=== PATIENT | male | born 1975 | race Two or more races ===

== ENCOUNTER 2018-12-07 06:04 | Emergency (ER) | payer MEDICAID ==
[~2018-12-07] VITALS: Ht 175.3 cm; Wt 83.9 kg
[2018-12-07] MEDS ORDERED: ALBUTEROL SULF 2.5 MG/0.5ML(0.5%) NEB SOLN HHN STA (06:06)
[2018-12-07] MEDS ORDERED: IPRATROPIUM BROM 0.5 MG/2.5ML INH SOL NEB ONE (06:15)
[2018-12-07] MEDS ORDERED: SODIUM CHLORIDE 0.9% 1,000 ML IV ONE (07:21)
[2018-12-07] MEDS ORDERED: methylPREDNISolone SOD SUCC 125 MG/2 ML VL IV ONE (07:30)
[2018-12-07 07:32] LABS: Basophils # (auto) 0.1 uL; Basophils % (auto) 0.5 % (0.0-2.0); Eosinophils # (auto) 0.6 uL; Eosinophils % (auto) 5.4 % (0.0-7.0); Hematocrit 46.7 % (41.0-53.0); Hemoglobin 15.6 g/dL (13.5-17.5); Lymphocytes # (auto) 1.2 uL; Lymphocytes % (auto) 11.1 % (10.0-50.0); Mean Corpuscular Hemoglobin 28.5 pg (28.0-32.0); Mean Corpuscular Hgb Conc. 33.4 g/dL (32.0-36.0); Mean Corpuscular Volume 85.1 fL (80.0-100.0); Monocytes # (auto) 0.7 uL; Monocytes % (auto) 6.1 % (0.0-12.0); Neutrophils # (auto) 8.5 uL; Neutrophils % (auto) 76.9 % (37.0-80.0); Platelet Count (auto) 287 10^3/uL (140-450); Red Blood Cells 5.48 10^6/uL (4.5-5.90); Red Cell Distribution Width 14.9 % (11.8-14.3); White Blood Cell 11.1 10^3/uL (4.4-10.8)
[2018-12-07 08:03] LABS: Albumin 3.2 g/dL (3.4-5.0); Anion Gap 8 (5-15); Blood Urea Nitrogen 9 mg/dL (7-18); Carbon Dioxide 26 mmol/L (21-32); Chloride 108 mmol/L (98-107); Glucose 145 mg/dL (74-106); Potassium 3.8 mmol/L (3.5-5.1); Sodium 142 mmol/L (136-145)
[2018-12-07 08:09] LABS: Alanine Aminotransferase 21 U/L (16-61); Alkaline Phosphatase 83 U/L (45-117); Aspartate Aminotransferase 21 U/L (15-37); BUN/Creatinine Ratio 9.4; Bilirubin, Total 0.7 mg/dL (0.2-1.0); GFR African American 112 mL/min; GFR Non-African American 92 mL/min; Total Protein 6.8 g/dL (6.4-8.2)
[2018-12-07 10:02] LABS: Urine WBC None Seen /hpf (0 - 3)
[2018-12-07 10:59] LABS: Urine Bacteria NONE SEEN /hpf (None Seen); Urine Blood Negative /uL (Negative); Urine Specific Gravity 1.021 (1.001-1.035)
[2018-12-07 11:48] VITALS: BP 102/54
== END 2018-12-07 12:19 | disposition home or self-care (01) ==
LOC: EDBD 06:04 → ER 06:04
DX: J45.909 Unspecified asthma, uncomplicated (principal); F12.90 Cannabis use, unspecified, uncomplicated; E46 Unspecified protein-calorie malnutrition; R73.9 Hyperglycemia, unspecified; F17.210 Nicotine dependence, cigarettes, uncomplicated; Z68.27 Body mass index [BMI] 27.0-27.9, adult
CPT/HCPCS: 36415; 71046; 80053; 81001; 83735; 83880; 84443; 84484; 85025; 94640; 96374; 99283; J2930; J7030; J7611; J7644

== ENCOUNTER 2021-05-02 01:35 | Emergency (ER) | payer MEDICAID ==
[~2021-05-02] VITALS: Ht 175.3 cm; Wt 65.8 kg
[2021-05-02] MEDS ORDERED: ACETAMINOPHEN 500 MG TAB PO ONE (02:00)
[2021-05-02] MEDS ORDERED: ONDANSETRON HCL 4 MG/2 ML VIAL IV ONE (02:30)
[2021-05-02] MEDS ORDERED: HYDROmorphone HCL 2 MG/ML VL IV ONE ×3 (02:30→14:30)
[2021-05-02 02:39] LABS: Basophils # (auto) 0 10 ^3/uL (0-0.2); Eosinophils # (auto) 0.1 10 ^3/uL (0-0.8); Eosinophils % (auto) 0.5 % (0.0-7.0); Lymphocytes # (auto) 1.2 10 ^3/uL (0.4-5.4)
[2021-05-02 02:40] LABS: Basophils % (auto) 0.2 % (0.0-2.0); Hematocrit 24.5 % (41.0-53.0); Hemoglobin 7.9 g/dL (13.5-17.5); Lymphocytes % (auto) 8.9 % (10.0-50.0); Mean Corpuscular Hemoglobin 24.1 pg (28.0-32.0); Mean Corpuscular Hgb Conc. 32.4 g/dL (32.0-36.0); Mean Corpuscular Volume 74.2 fL (80.0-100.0); Monocytes # (auto) 0.6 10 ^3/uL (0-1.3); Monocytes % (auto) 4.2 % (0.0-12.0); Neutrophils # (auto) 11.7 10 ^3/uL (1.6-8.6); Neutrophils % (auto) 86.2 % (37.0-80.0); White Blood Cell 13.6 10^3/uL (4.4-10.8)
[2021-05-02 02:52] LABS: Alanine Aminotransferase 23 U/L (16-61); Albumin 1.5 g/dL (3.4-5.0); Anion Gap 11 (5-15); Aspartate Aminotransferase 19 U/L (15-37); BUN/Creatinine Ratio 12.2; Blood Urea Nitrogen 10 mg/dL (7-18); Calcium 7.6 mg/dL (8.5-10.1); Carbon Dioxide 24 mmol/L (21-32); Chloride 97 mmol/L (98-107); GFR African American 131 mL/min; GFR Non-African American 108 mL/min; Glucose 79 mg/dL (74-106); Lipase 34 U/L (73-393); Magnesium 1.6 mg/dL (1.6-2.6); Potassium 3.6 mmol/L (3.5-5.1); Sodium 132 mmol/L (136-145)
[2021-05-02 02:56] LABS: INR 1.07 (0.9-1.15)
[2021-05-02 02:58] LABS: Alkaline Phosphatase 103 U/L (45-117); Bilirubin, Total 0.3 mg/dL (0.2-1.0); Total Protein 6.5 g/dL (6.4-8.2)
[2021-05-02 03:10] LABS: Red Cell Distribution Width 20.4 % (11.8-14.3)
[2021-05-02] MEDS ORDERED: IOHEXOL 300 MG/ML 100ML BOTTLE IJ ONE (04:16)
[2021-05-02 05:21] LABS: Urine Bacteria MOD /hpf (None Seen); Urine Blood 2+ /uL (Negative); Urine Specific Gravity 1.017 (1.001-1.035); Urine WBC 2673 /hpf (0 - 3); Urine WBC Clumps PRESENT /hpf (None Seen)
[2021-05-02] MEDS ORDERED: SODIUM CHLORIDE 0.9% 2,000 ML IV ONE (06:00)
[2021-05-02] MEDS ORDERED: CEFTRIAXONE SODIUM 2 GM in D5W 5% 50 ML IV ONE (06:00)
[2021-05-02] MEDS ORDERED: cefTRIAXone 1GM/50ML D5W 100 ML IV ONE (06:21)
[2021-05-02] MEDS: SODIUM CHLORIDE 0.9% 1,000 ML IV SCH ×2 (09:46→19:30)
[2021-05-02] MEDS: metroNIDAZOLE 500MG/100ML 100 ML IV SCH ×3 (11:19→20:30)
[2021-05-02] MEDS: HYDROmorphone HCL 2 MG/ML VL IV PRN (20:45)
[2021-05-03] MEDS: HYDROmorphone HCL 2 MG/ML VL IV PRN ×6 (00:52→21:45)
[2021-05-03] MEDS: metroNIDAZOLE 500MG/100ML 100 ML IV SCH ×3 (03:28→19:05)
[2021-05-03] MEDS: SODIUM CHLORIDE 0.9% 1,000 ML IV SCH ×2 (05:11→15:45)
[2021-05-03] MEDS: cefTRIAXone 1GM/50ML D5W 50 ML IV SCH (09:40)
[2021-05-04] MEDS: HYDROmorphone HCL 2 MG/ML VL IV PRN ×8 (01:45→21:39)
[2021-05-04] MEDS: SODIUM CHLORIDE 0.9% 1,000 ML IV SCH ×3 (01:51→21:30)
[2021-05-04] MEDS: metroNIDAZOLE 500MG/100ML 100 ML IV SCH ×3 (05:09→19:00)
[2021-05-04] MEDS: cefTRIAXone 1GM/50ML D5W 50 ML IV SCH (09:10)
[2021-05-04 19:02] LABS: Basophils # (auto) 0 10 ^3/uL (0-0.2); Basophils % (auto) 0.2 % (0.0-2.0); Eosinophils # (auto) 0.1 10 ^3/uL (0-0.8); Eosinophils % (auto) 0.8 % (0.0-7.0); Hemoglobin 8.3 g/dL (13.5-17.5); White Blood Cell 7.5 10^3/uL (4.4-10.8)
[2021-05-04 19:03] LABS: Hematocrit 26.3 % (41.0-53.0); Lymphocytes # (auto) 0.9 10 ^3/uL (0.4-5.4); Mean Corpuscular Hemoglobin 23.7 pg (28.0-32.0); Mean Corpuscular Hgb Conc. 31.8 g/dL (32.0-36.0); Mean Corpuscular Volume 74.5 fL (80.0-100.0); Monocytes # (auto) 0.7 10 ^3/uL (0-1.3); Monocytes % (auto) 9.8 % (0.0-12.0); Neutrophils # (auto) 5.8 10 ^3/uL (1.6-8.6); Neutrophils % (auto) 77.2 % (37.0-80.0); Nucleated Red Blood Cells % 0.1 %; Red Blood Cells 3.52 10^6/uL (4.5-5.90)
[2021-05-04 19:23] LABS: INR 1.17 (0.9-1.15); Partial Thromboplastin Time 30.4 sec (23.6-33.0)
[2021-05-04 19:26] LABS: Albumin 1.5 g/dL (3.4-5.0); BUN/Creatinine Ratio 8.8; Calcium 7.9 mg/dL (8.5-10.1)
[2021-05-04 19:36] LABS: Bilirubin, Total 0.3 mg/dL (0.2-1.0); CRP High Sensitivity 17.9 mg/dL (< 0.3); Total Protein 6.5 g/dL (6.4-8.2)
[2021-05-04] MEDS ORDERED: DOCUSATE SOD 100 MG CAP PO SCH (22:00)
[2021-05-05] MEDS ORDERED: OXYCODONE W/ ACETAMINOPHEN 5/325MG TABLET PO SCH
[2021-05-05] MEDS: DOCUSATE SOD 100 MG CAP PO PRN ×2 (00:42→12:04)
[2021-05-05] MEDS: OXYCODONE W/ ACETAMINOPHEN 5/325MG TABLET PO PRN ×2 (00:42→11:33)
[2021-05-05] MEDS: metroNIDAZOLE 500MG/100ML 100 ML IV SCH ×3 (03:00→21:00)
[2021-05-05] MEDS: HYDROmorphone HCL 2 MG/ML VL IV PRN ×4 (08:29→20:18)
[2021-05-05] MEDS: SODIUM CHLORIDE 0.9% 1,000 ML IV SCH ×3 (08:33→18:58)
[2021-05-05] MEDS: cefTRIAXone 1GM/50ML D5W 50 ML IV SCH (10:39)
[2021-05-05] MEDS: MORPHINE SULFATE INJECTION 2 MG/ML SYRG IV PRN (21:02)
[2021-05-06] MEDS ORDERED: OXYCODONE W/ ACETAMINOPHEN 5/325MG TABLET PO ONE (00:45)
[2021-05-06] MEDS: DOCUSATE SOD 100 MG CAP PO PRN (00:51)
[2021-05-06] MEDS: metroNIDAZOLE 500MG/100ML 100 ML IV SCH ×3 (02:56→20:41)
[2021-05-06] MEDS: MORPHINE SULFATE INJECTION 2 MG/ML SYRG IV PRN ×5 (06:04→21:57)
[2021-05-06] MEDS: cefTRIAXone 1GM/50ML D5W 50 ML IV SCH (08:53)
[2021-05-06] MEDS: SODIUM CHLORIDE 0.9% 1,000 ML IV SCH ×2 (13:30→23:30)
[2021-05-06] MEDS: ACETAMINOPHEN 325 MG TAB PO PRN (20:41)
[2021-05-07] MEDS: MORPHINE SULFATE INJECTION 2 MG/ML SYRG IV PRN ×3 (06:33→18:23)
[2021-05-07] MEDS: ACETAMINOPHEN 325 MG TAB PO PRN (06:37)
[2021-05-07] MEDS: metroNIDAZOLE 500MG/100ML 100 ML IV SCH ×3 (06:49→19:04)
[2021-05-07] MEDS ORDERED: MORPHINE SULFATE 4 MG/ML SYR/VIAL ONE ×2 (13:27→18:06)
[2021-05-07] MEDS: cefTRIAXone 1GM/50ML D5W 50 ML IV SCH (13:37)
[2021-05-07] MEDS: SODIUM CHLORIDE 0.9% 1,000 ML IV SCH ×2 (14:37→19:30)
[2021-05-07] MEDS: OXYCODONE W/ ACETAMINOPHEN 5/325MG TABLET PO PRN (20:39)
[2021-05-08] MEDS: metroNIDAZOLE 500MG/100ML 100 ML IV SCH ×3 (03:00→19:00)
[2021-05-08] MEDS: MORPHINE SULFATE INJECTION 2 MG/ML SYRG IV PRN ×2 (03:55→19:02)
[2021-05-08] MEDS ORDERED: MORPHINE SULFATE INJECTION 2 MG/ML SYRG ONE (03:58)
[2021-05-08] MEDS: SODIUM CHLORIDE 0.9% 1,000 ML IV SCH ×2 (05:30→15:30)
[2021-05-08] MEDS: cefTRIAXone 1GM/50ML D5W 50 ML IV SCH (09:08)
[2021-05-08] MEDS: OXYCODONE W/ ACETAMINOPHEN 5/325MG TABLET PO PRN ×2 (09:08→15:14)
[2021-05-08 18:59] VITALS: BP 96/49
== END 2021-05-08 19:29 | disposition short-term general hospital (02) ==
LOC: EDBD 01:35 → EDUNIT# 01:35 → ER 01:39 → EDBD 01:39 → ER 05-08 19:29
DX: R10.84 Generalized abdominal pain (principal); R50.9 Fever, unspecified; K94.03 Colostomy malfunction; J45.909 Unspecified asthma, uncomplicated; F17.210 Nicotine dependence, cigarettes, uncomplicated; Z85.038 Personal history of other malignant neoplasm of large intestine; Z20.822 Contact with and (suspected) exposure to COVID-19
CPT/HCPCS: 36415; 71045; 74177; 80053; 81001; 82728; 83605; 83690; 83735; 83880; 84484; 85025; 85379; 85610; 85730; 86141; 87040; 87426; 93005; 96365; 96366; 96367; 96375; 96376; 99285; J0696; J1170; J2270; J2405; J3490; J7030; J7060; Q9967; 96361

== ENCOUNTER 2021-06-04 00:44 | Emergency (ER) | payer MEDICAID ==
[~2021-06-04] VITALS: Ht 177.8 cm; Wt 68.0 kg
[2021-06-04] MEDS ORDERED: MORPHINE SULFATE 10 MG/ML INJ 1ML SDV IV ONE (01:15)
[2021-06-04] MEDS ORDERED: ONDANSETRON HCL 4 MG/2 ML VIAL IV ONE (01:15)
[2021-06-04] MEDS ORDERED: MORPHINE SULFATE 4 MG/ML SYR/VIAL ONE (02:44)
[2021-06-04] MEDS ORDERED: MORPHINE SULFATE INJECTION 2 MG/ML SYRG ONE (02:45)
[2021-06-04 04:56] VITALS: BP 102/58
== END 2021-06-04 07:55 | disposition home or self-care (01) ==
LOC: ER 00:44 → EDBD 00:44 → ER 07:55
DX: C18.6 Malignant neoplasm of descending colon (principal); G89.18 Other acute postprocedural pain; J45.909 Unspecified asthma, uncomplicated; F17.210 Nicotine dependence, cigarettes, uncomplicated; Z93.3 Colostomy status
CPT/HCPCS: 74176; 96374; 96375; 99284; J2270; J2405

== ENCOUNTER 2021-08-15 05:18 | Inpatient (IN) | payer MEDICAID ==
[~2021-08-15] VITALS: Ht 170.2 cm; Wt 55.8 kg
[2021-08-15 06:54] LABS: Urine Bacteria FEW /hpf (None Seen); Urine Blood 3+ /uL (Negative); Urine WBC 4204 /hpf (0 - 3); Urine WBC Clumps PRESENT /hpf (None Seen)
[2021-08-15 07:27] LABS: Urine Specific Gravity 1.018 (1.001-1.035)
[2021-08-15] MEDS ORDERED: HYDROmorphone HCL 2 MG/ML VL IV ONE ×3 (07:45→13:45)
[2021-08-15] MEDS ORDERED: ONDANSETRON HCL 4 MG/2 ML VIAL IV ONE ×2 (07:45→13:45)
[2021-08-15] MEDS ORDERED: SODIUM CHLORIDE 0.9% 1,000 ML IV ONE (08:00)
[2021-08-15 08:36] LABS: Basophils # (auto) 0 10 ^3/uL (0-0.2); Eosinophils # (auto) 0.6 10 ^3/uL (0-0.8); Lymphocytes # (auto) 0.8 10 ^3/uL (0.4-5.4); Lymphocytes % (auto) 5.7 % (10.0-50.0)
[2021-08-15 08:38] LABS: Basophils % (auto) 0.2 % (0.0-2.0); Eosinophils % (auto) 3.9 % (0.0-7.0); Hematocrit 29.3 % (41.0-53.0); Mean Corpuscular Volume 79.3 fL (80.0-100.0); Monocytes # (auto) 0.4 10 ^3/uL (0-1.3); Monocytes % (auto) 2.8 % (0.0-12.0); Neutrophils # (auto) 12.6 10 ^3/uL (1.6-8.6); Neutrophils % (auto) 87.4 % (37.0-80.0); Nucleated Red Blood Cells % 0.1 %; Red Cell Distribution Width 18.9 % (11.8-14.3); White Blood Cell 14.4 10^3/uL (4.4-10.8)
[2021-08-15 09:05] LABS: Albumin 2.2 g/dL (3.4-5.0); Calcium 8.1 mg/dL (8.5-10.1); Potassium 3.7 mmol/L (3.5-5.1)
[2021-08-15 09:10] LABS: BUN/Creatinine Ratio 22.1; Bilirubin, Total 0.7 mg/dL (0.2-1.0)
[2021-08-15] MEDS ORDERED: LORazepam 2MG/ML-1ML VIAL IV ONE (13:30)
[2021-08-15] MEDS ORDERED: MORPHINE SULFATE 4 MG/ML SYR/VIAL IV PRN (14:00)
[2021-08-15] MEDS ORDERED: MORPHINE SULFATE INJECTION 2 MG/ML SYRG IV PRN ×2 (14:00→15:15)
[2021-08-15] MEDS ORDERED: NITROGLYCERIN 0.4 MG SL TAB SL PRN ×2 (14:00→15:15)
[2021-08-15] MEDS ORDERED: METOCLOPRAMIDE HCL 5MG/ml INJ 2ml VIAL IV PRN (15:15)
[2021-08-15] MEDS ORDERED: DOCUSATE SOD 100 MG CAP PO PRN (15:15)
[2021-08-15] MEDS ORDERED: levoFLOXacin 750MG 150 ML IV ONE (15:15)
[2021-08-15] MEDS ORDERED: LACTATED RINGER'S 1,000 ML IV ONE (15:15)
[2021-08-15] MEDS ORDERED: ALUM & MAG HYDROX-SIMETH LIQ(MAALOX) 30 ML PO PRN (15:15)
[2021-08-15] MEDS ORDERED: FAMOTIDINE (10MG/ML) 2ML VL IV ONE (15:15)
[2021-08-15] MEDS ORDERED: FAMO-12 PO (16:11)
[2021-08-15] MEDS ORDERED: ALBUAER3 IN (16:11)
[2021-08-15] MEDS ORDERED: OXYC325T14 PO (16:11)
[2021-08-15] MEDS ORDERED: GABA300C10 PO (16:11)
[2021-08-15] MEDS ORDERED: LIDO1KIT21 TOP (16:11)
[2021-08-15 16:14] LABS: Alcohol, Urine < 3.0 mg/dL (0-10); Amphetamine Screen, Urine POSITIVE (NEGATIVE); Barbiturate Scree,Urine NEGATIVE (NEGATIVE); Benzodiazephine Screen, Urine NEGATIVE (NEGATIVE); Cannabinoid Screen, Urine POSITIVE (NEGATIVE); Cocaine Screen, Urine NEGATIVE (NEGATIVE); Opiate Scree,Urine NEGATIVE (NEGATIVE); Phencyclidine Screen, Urine NEGATIVE (NEGATIVE)
[2021-08-15] MEDS: SODIUM CHLORIDE 0.9% 1,000 ML IV SCH (16:49)
[2021-08-15 16:52] LABS: % Iron Saturation 11.2 % (20-55)
[2021-08-15 16:54] LABS: INR 1.01 (0.9-1.15); Lactic Acid w/Reflex 2.6 mmol/L (0.4-2.0); Partial Thromboplastin Time 24.9 sec (23.6-33.0)
[2021-08-15 16:59] LABS: Cholesterol 134 mg/dL (< 200)
[2021-08-15 17:02] LABS: HDL Cholesterol 30 mg/dL (40-59); LDL Cholesterol 86 mg/dL (< 100); Triglycerides 133 mg/dL (< 150)
[2021-08-15] MEDS ORDERED: IOHEXOL 350 MG/ML 100ML IJ ONE (17:04)
[2021-08-15] MEDS: HYDROmorphone HCL 2 MG/ML VL IV PRN ×2 (18:35→22:39)
[2021-08-15] MEDS: LORazepam 2MG/ML-1ML VIAL IV PRN (21:13)
[2021-08-15 22:00] VITALS: BP 108/82
[2021-08-15] MEDS: TEMAZEPAM 15 MG CAP PO PRN (22:25)
[2021-08-15] MEDS ORDERED: dilTIAZem 25 MG/5 ML VIAL IV ONE (23:00)
[2021-08-16] MEDS: HYDROcodone-ACET 5/325MG TAB PO PRN ×2 (00:45→12:40)
[2021-08-16] MEDS: LORazepam 2MG/ML-1ML VIAL IV PRN (01:57)
[2021-08-16] MEDS ORDERED: dilTIAZem 25 MG/5 ML VIAL IV ONE (02:30)
[2021-08-16] MEDS: HYDROmorphone HCL 2 MG/ML VL IV PRN ×3 (03:01→20:22)
[2021-08-16] MEDS: FAMOTIDINE (10MG/ML) 2ML VL IV SCH ×2 (03:15→15:26)
[2021-08-16 05:00] VITALS: BP 108/72
[2021-08-16 05:16] LABS: Basophils # (auto) 0 10 ^3/uL (0-0.2); Basophils % (auto) 0.3 % (0.0-2.0); Eosinophils # (auto) 0.3 10 ^3/uL (0-0.8); Lymphocytes # (auto) 0.6 10 ^3/uL (0.4-5.4); Monocytes # (auto) 0.5 10 ^3/uL (0-1.3)
[2021-08-16 05:18] LABS: Eosinophils % (auto) 2.8 % (0.0-7.0); Hematocrit 27.3 % (41.0-53.0); Hemoglobin 9.6 g/dL (13.5-17.5); Lymphocytes % (auto) 6.2 % (10.0-50.0); Mean Corpuscular Hemoglobin 27.8 pg (28.0-32.0); Mean Corpuscular Hgb Conc. 35.1 g/dL (32.0-36.0); Mean Corpuscular Volume 79.2 fL (80.0-100.0); Monocytes % (auto) 5.3 % (0.0-12.0); Neutrophils # (auto) 8.5 10 ^3/uL (1.6-8.6); Neutrophils % (auto) 85.4 % (37.0-80.0); Red Blood Cells 3.44 10^6/uL (4.5-5.90); Red Cell Distribution Width 18.3 % (11.8-14.3)
[2021-08-16 05:31] LABS: INR 1.13 (0.9-1.15); Partial Thromboplastin Time 33.2 sec (23.6-33.0)
[2021-08-16 05:50] LABS: Albumin 1.8 g/dL (3.4-5.0); Bilirubin, Total 0.8 mg/dL (0.2-1.0); Calcium 7.7 mg/dL (8.5-10.1); Magnesium 2.3 mg/dL (1.6-2.6); Phosphorus 2.8 mg/dL (2.5-4.90); Total Protein 6.1 g/dL (6.4-8.2); Uric Acid 3.2 mg/dL (3.5-7.2)
[2021-08-16 09:00] VITALS: BP 99/63
[2021-08-16] MEDS: ENOXAPARIN SOD 40 MG/0.4 ML SYRINGE SC SCH (09:35)
[2021-08-16] MEDS: SODIUM CHLORIDE 0.9% 1,000 ML IV SCH ×3 (11:04→23:00)
[2021-08-16 13:00] VITALS: BP 96/64
[2021-08-16] MEDS: PIPERACILLIN-TAZO 4.5GM 100 ML IV SCH ×2 (14:17→22:42)
[2021-08-16] MEDS ORDERED: levoFLOXacin 750MG 150 ML IV SCH (15:15)
[2021-08-16] MEDS ORDERED: HYDROmorphone HCL 2 MG/ML VL IV PRN (15:30)
[2021-08-16 17:00] VITALS: BP 117/70
[2021-08-16] MEDS: PHENAZOPYRIDINE HCL 100 MG TAB PO SCH (17:54)
[2021-08-16 20:19] VITALS: BP 127/79
[2021-08-16 22:00] VITALS: BP 99/54
[2021-08-16] MEDS: LACTULOSE 20Gm/30ML SOLN PO SCH (22:41)
[2021-08-16] MEDS: ACETAMINOPHEN 325 MG TAB PO PRN (22:42)
[2021-08-16] MEDS: TEMAZEPAM 15 MG CAP PO PRN (23:34)
[2021-08-17] VITALS (7 sets, daily range): BP systolic 102–127; BP diastolic 46–83
[2021-08-17] MEDS: HYDROmorphone HCL 2 MG/ML VL IV PRN ×6 (01:09→23:20)
[2021-08-17] MEDS: SODIUM CHLORIDE 0.9% 1,000 ML IV SCH ×2 (04:06→19:09)
[2021-08-17] MEDS: FAMOTIDINE (10MG/ML) 2ML VL IV SCH ×2 (04:22→15:52)
[2021-08-17] MEDS: PIPERACILLIN-TAZO 4.5GM 100 ML IV SCH (06:21)
[2021-08-17] MEDS: PHENAZOPYRIDINE HCL 100 MG TAB PO SCH ×3 (09:40→18:51)
[2021-08-17] MEDS: LACTULOSE 20Gm/30ML SOLN PO SCH ×2 (09:40→22:29)
[2021-08-17] MEDS: ENOXAPARIN SOD 40 MG/0.4 ML SYRINGE SC SCH (09:41)
[2021-08-17] MEDS ORDERED: ERTAPENEM SOD INJ 1 GM in SODIUM CHL 0.9% 50 ML IV ONE (13:30)
[2021-08-17] MEDS: ACETAMINOPHEN 325 MG TAB PO PRN (19:07)
[2021-08-17] MEDS: TEMAZEPAM 15 MG CAP PO PRN (23:20)
[2021-08-18] MEDS: FAMOTIDINE (10MG/ML) 2ML VL IV SCH ×2 (04:10→16:26)
[2021-08-18] MEDS: HYDROmorphone HCL 2 MG/ML VL IV PRN ×5 (04:11→23:12)
[2021-08-18 05:00] VITALS: BP 104/64
[2021-08-18] MEDS: SODIUM CHLORIDE 0.9% 1,000 ML IV SCH ×2 (05:58→16:26)
[2021-08-18 07:30] VITALS: BP 104/52
[2021-08-18] MEDS: PHENAZOPYRIDINE HCL 100 MG TAB PO SCH ×2 (09:13→12:00)
[2021-08-18] MEDS: LACTULOSE 20Gm/30ML SOLN PO SCH ×2 (09:14→21:29)
[2021-08-18] MEDS: ERTAPENEM SOD INJ 1 GM in SODIUM CHL 0.9% 50 ML IV SCH (09:14)
[2021-08-18] MEDS: ENOXAPARIN SOD 40 MG/0.4 ML SYRINGE SC SCH (09:14)
[2021-08-18 13:00] VITALS: BP 103/56
[2021-08-18] MEDS: ACETAMINOPHEN 325 MG TAB PO PRN ×2 (15:03→22:44)
[2021-08-18 16:37] LABS: BUN/Creatinine Ratio 11.1; Potassium 3.7 mmol/L (3.5-5.1)
[2021-08-18 17:00] VITALS: BP 115/63
[2021-08-18 20:00] VITALS: BP 99/53
[2021-08-18 22:00] VITALS: BP 99/58
[2021-08-18] MEDS: TEMAZEPAM 15 MG CAP PO PRN (22:44)
[2021-08-19] VITALS (7 sets, daily range): BP systolic 92–110; BP diastolic 48–72
[2021-08-19] MEDS: SODIUM CHLORIDE 0.9% 1,000 ML IV SCH ×3 (01:00→20:28)
[2021-08-19] MEDS: HYDROmorphone HCL 2 MG/ML VL IV PRN ×6 (04:22→21:50)
[2021-08-19] MEDS: FAMOTIDINE (10MG/ML) 2ML VL IV SCH ×2 (04:27→15:35)
[2021-08-19] MEDS: ACETAMINOPHEN 325 MG TAB PO PRN ×2 (04:48→15:25)
[2021-08-19 06:52] LABS: Hematocrit 20.1 % (41.0-53.0); Mean Corpuscular Hemoglobin 27.2 pg (28.0-32.0); Mean Corpuscular Hgb Conc. 33.7 g/dL (32.0-36.0); Mean Corpuscular Volume 80.9 fL (80.0-100.0); Red Blood Cells 2.48 10^6/uL (4.5-5.90); Red Cell Distribution Width 18.1 % (11.8-14.3)
[2021-08-19 06:58] LABS: Hemoglobin 6.8 g/dL (13.5-17.5); White Blood Cell 1.7 10^3/uL (4.4-10.8)
[2021-08-19 07:00] LABS: Basophils % (manual) 0 (0.0-2.0); Blast Cells 0; Metamyelocytes % 0; Myelocytes % 0; Promyelocytes % 0; Reactive Lymphocytes 0
[2021-08-19 07:14] LABS: Band Neutrophils % (manual) 26; Eosinophils % (manual) 11 (0-7); Lymphocytes % (manual) 25 (10.0-50.0); Monocytes % (manual) 10 (0-12)
[2021-08-19] MEDS: ERTAPENEM SOD INJ 1 GM in SODIUM CHL 0.9% 50 ML IV SCH (08:41)
[2021-08-19] MEDS: LACTULOSE 20Gm/30ML SOLN PO SCH ×2 (08:42→21:50)
[2021-08-19] MEDS: ENOXAPARIN SOD 40 MG/0.4 ML SYRINGE SC SCH (08:42)
[2021-08-19] MEDS: TEMAZEPAM 15 MG CAP PO PRN (21:50)
[2021-08-20] VITALS (10 sets, daily range): BP systolic 82–112; BP diastolic 40–66
[2021-08-20] MEDS: HYDROmorphone HCL 2 MG/ML VL IV PRN ×4 (01:21→18:50)
[2021-08-20] MEDS: FAMOTIDINE (10MG/ML) 2ML VL IV SCH ×2 (03:32→14:40)
[2021-08-20] MEDS: ACETAMINOPHEN 325 MG TAB PO PRN (06:18)
[2021-08-20] MEDS: SODIUM CHLORIDE 0.9% 1,000 ML IV SCH ×2 (07:00→14:41)
[2021-08-20] MEDS: ENOXAPARIN SOD 40 MG/0.4 ML SYRINGE SC SCH (09:19)
[2021-08-20] MEDS: LACTULOSE 20Gm/30ML SOLN PO SCH ×2 (09:19→22:23)
[2021-08-20] MEDS: ERTAPENEM SOD INJ 1 GM in SODIUM CHL 0.9% 50 ML IV SCH (09:20)
[2021-08-20] MEDS ORDERED: SODIUM CHLORIDE 0.9% 500 ML IV ONE (09:45)
[2021-08-20 11:44] LABS: Hematocrit 14.8 % (41.0-53.0); Mean Corpuscular Hemoglobin 26.7 pg (28.0-32.0); Mean Corpuscular Volume 80.9 fL (80.0-100.0); Red Blood Cells 1.83 10^6/uL (4.5-5.90); Red Cell Distribution Width 17.8 % (11.8-14.3); White Blood Cell 7.9 10^3/uL (4.4-10.8)
[2021-08-20 12:16] LABS: Hemoglobin 4.9 g/dL (13.5-17.5)
[2021-08-20 12:19] LABS: Basophils % (manual) 0 (0.0-2.0); Blast Cells 0; Metamyelocytes % 0; Myelocytes % 0; Promyelocytes % 0; Reactive Lymphocytes 0
[2021-08-20 13:37] LABS: Band Neutrophils % (manual) 20; Eosinophils % (manual) 1 (0-7); Lymphocytes % (manual) 29 (10.0-50.0); Monocytes % (manual) 13 (0-12)
[2021-08-20] MEDS: LORazepam 2MG/ML-1ML VIAL IV PRN (16:00)
[2021-08-20] MEDS: TEMAZEPAM 15 MG CAP PO PRN (16:01)
[2021-08-21] MEDS: HYDROmorphone HCL 2 MG/ML VL IV PRN ×6 (00:09→22:18)
[2021-08-21] MEDS: SODIUM CHLORIDE 0.9% 1,000 ML IV SCH ×2 (02:35→10:52)
[2021-08-21] MEDS: TEMAZEPAM 15 MG CAP PO PRN (02:57)
[2021-08-21] MEDS: FAMOTIDINE (10MG/ML) 2ML VL IV SCH ×2 (03:02→15:00)
[2021-08-21 05:30] VITALS: BP 100/59
[2021-08-21 05:53] LABS: Hematocrit 32.9 % (41.0-53.0); Hemoglobin 10.9 g/dL (13.5-17.5); Mean Corpuscular Hemoglobin 27.5 pg (28.0-32.0); Mean Corpuscular Hgb Conc. 33.1 g/dL (32.0-36.0); Mean Corpuscular Volume 82.9 fL (80.0-100.0); Red Blood Cells 3.97 10^6/uL (4.5-5.90); Red Cell Distribution Width 18.1 % (11.8-14.3)
[2021-08-21 06:04] LABS: BUN/Creatinine Ratio 9.3; Calcium 7.9 mg/dL (8.5-10.1)
[2021-08-21 06:08] LABS: Basophils % (manual) 0 (0.0-2.0); Blast Cells 0; Metamyelocytes % 0; Myelocytes % 0; Promyelocytes % 0; Reactive Lymphocytes 0
[2021-08-21 08:46] LABS: Band Neutrophils % (manual) 15; Eosinophils % (manual) 4 (0-7); Lymphocytes % (manual) 19 (10.0-50.0); Monocytes % (manual) 8 (0-12)
[2021-08-21 09:00] VITALS: BP 107/69
[2021-08-21] MEDS: ERTAPENEM SOD INJ 1 GM in SODIUM CHL 0.9% 50 ML IV SCH (09:47)
[2021-08-21] MEDS: LACTULOSE 20Gm/30ML SOLN PO SCH ×2 (09:48→22:17)
[2021-08-21] MEDS: ENOXAPARIN SOD 40 MG/0.4 ML SYRINGE SC SCH (09:49)
[2021-08-21] MEDS: HYDROcodone-ACET 5/325MG TAB PO PRN (09:50)
[2021-08-21] MEDS: LORazepam 2MG/ML-1ML VIAL IV PRN (20:29)
[2021-08-21 22:00] VITALS: BP 109/64
[2021-08-22] MEDS: TEMAZEPAM 15 MG CAP PO PRN ×2 (00:56→22:11)
[2021-08-22] MEDS: HYDROcodone-ACET 5/325MG TAB PO PRN ×3 (00:57→22:03)
[2021-08-22] MEDS: SODIUM CHLORIDE 0.9% 1,000 ML IV SCH (01:00)
[2021-08-22] MEDS: FAMOTIDINE (10MG/ML) 2ML VL IV SCH ×2 (02:07→15:27)
[2021-08-22] MEDS: HYDROmorphone HCL 2 MG/ML VL IV PRN ×2 (03:09→08:16)
[2021-08-22 05:42] LABS: Basophils # (auto) 0 10 ^3/uL (0-0.2); Basophils % (auto) 0.6 % (0.0-2.0); Eosinophils # (auto) 0.1 10 ^3/uL (0-0.8); Eosinophils % (auto) 1.9 % (0.0-7.0); Hematocrit 28.5 % (41.0-53.0); Hemoglobin 9.8 g/dL (13.5-17.5); Lymphocytes # (auto) 0.9 10 ^3/uL (0.4-5.4); Lymphocytes % (auto) 14.8 % (10.0-50.0); Mean Corpuscular Hemoglobin 28.1 pg (28.0-32.0); Mean Corpuscular Hgb Conc. 34.5 g/dL (32.0-36.0); Mean Corpuscular Volume 81.4 fL (80.0-100.0); Monocytes # (auto) 0.7 10 ^3/uL (0-1.3); Monocytes % (auto) 11.3 % (0.0-12.0); Neutrophils # (auto) 4.5 10 ^3/uL (1.6-8.6); Neutrophils % (auto) 71.4 % (37.0-80.0); Nucleated Red Blood Cells % 0.1 %; Red Cell Distribution Width 17.9 % (11.8-14.3); White Blood Cell 6.2 10^3/uL (4.4-10.8)
[2021-08-22 06:07] LABS: Calcium 7.5 mg/dL (8.5-10.1)
[2021-08-22 06:29] LABS: Potassium 2.8 mmol/L (3.5-5.1)
[2021-08-22 06:51] VITALS: BP 96/50
[2021-08-22] MEDS: LACTULOSE 20Gm/30ML SOLN PO SCH ×2 (08:05→22:00)
[2021-08-22] MEDS: ENOXAPARIN SOD 40 MG/0.4 ML SYRINGE SC SCH (08:05)
[2021-08-22] MEDS: ERTAPENEM SOD INJ 1 GM in SODIUM CHL 0.9% 50 ML IV SCH (08:07)
[2021-08-22] MEDS: HYDROmorphone HCL 2 MG TAB PO PRN ×3 (10:41→18:43)
[2021-08-22] MEDS: POTASSIUM CHL 20MEQ/50ML 50 ML IV SCH ×3 (12:00→15:39)
[2021-08-22] MEDS: LORazepam 2MG/ML-1ML VIAL IV PRN ×2 (15:38→22:11)
[2021-08-22 16:13] VITALS: BP 102/76
[2021-08-22] MEDS: ONDANSETRON HCL 4 MG/2 ML VIAL IV PRN (22:11)
[2021-08-23] MEDS: ACETAMINOPHEN 325 MG TAB PO PRN (01:39)
[2021-08-23] MEDS: HYDROmorphone HCL 2 MG TAB PO PRN ×6 (01:43→23:09)
[2021-08-23] MEDS: FAMOTIDINE (10MG/ML) 2ML VL IV SCH ×2 (06:08→15:04)
[2021-08-23] MEDS: HYDROcodone-ACET 5/325MG TAB PO PRN (06:09)
[2021-08-23 06:48] LABS: Basophils # (auto) 0 10 ^3/uL (0-0.2); Basophils % (auto) 0.6 % (0.0-2.0); Eosinophils # (auto) 0.2 10 ^3/uL (0-0.8); Eosinophils % (auto) 2.5 % (0.0-7.0); Hematocrit 29.1 % (41.0-53.0); Hemoglobin 9.8 g/dL (13.5-17.5); Lymphocytes # (auto) 1.1 10 ^3/uL (0.4-5.4); Lymphocytes % (auto) 17.2 % (10.0-50.0); Mean Corpuscular Hemoglobin 27.7 pg (28.0-32.0); Mean Corpuscular Hgb Conc. 33.8 g/dL (32.0-36.0); Mean Corpuscular Volume 81.9 fL (80.0-100.0); Monocytes # (auto) 0.8 10 ^3/uL (0-1.3); Monocytes % (auto) 12.7 % (0.0-12.0); Neutrophils # (auto) 4.3 10 ^3/uL (1.6-8.6); Nucleated Red Blood Cells % 0.1 %; Red Blood Cells 3.55 10^6/uL (4.5-5.90); Red Cell Distribution Width 17.9 % (11.8-14.3); White Blood Cell 6.5 10^3/uL (4.4-10.8)
[2021-08-23 07:04] LABS: BUN/Creatinine Ratio 8.6; Calcium 7.6 mg/dL (8.5-10.1); Potassium 3.2 mmol/L (3.5-5.1)
[2021-08-23 09:00] VITALS: BP 109/75
[2021-08-23] MEDS: LACTULOSE 20Gm/30ML SOLN PO SCH ×2 (09:27→20:56)
[2021-08-23] MEDS: ENOXAPARIN SOD 40 MG/0.4 ML SYRINGE SC SCH (09:28)
[2021-08-23] MEDS: ERTAPENEM SOD INJ 1 GM in SODIUM CHL 0.9% 50 ML IV SCH (09:28)
[2021-08-23] MEDS: ONDANSETRON HCL 4 MG/2 ML VIAL IV PRN (12:50)
[2021-08-23 13:00] VITALS: BP 100/61
[2021-08-23 17:00] VITALS: BP 111/70
[2021-08-23 19:30] VITALS: BP 106/63
[2021-08-23] MEDS: LORazepam 2MG/ML-1ML VIAL IV PRN (20:56)
[2021-08-23 22:00] VITALS: BP 116/77
[2021-08-24] VITALS (7 sets, daily range): BP systolic 100–126; BP diastolic 62–73
[2021-08-24] MEDS: TEMAZEPAM 15 MG CAP PO PRN (02:01)
[2021-08-24] MEDS: FAMOTIDINE (10MG/ML) 2ML VL IV SCH ×2 (03:00→16:31)
[2021-08-24] MEDS: HYDROmorphone HCL 2 MG TAB PO PRN ×6 (03:16→21:20)
[2021-08-24] MEDS: LORazepam 2MG/ML-1ML VIAL IV PRN ×3 (06:51→21:19)
[2021-08-24] MEDS: LACTULOSE 20Gm/30ML SOLN PO SCH ×2 (09:34→21:18)
[2021-08-24] MEDS: ERTAPENEM SOD INJ 1 GM in SODIUM CHL 0.9% 50 ML IV SCH (09:35)
[2021-08-24] MEDS: ENOXAPARIN SOD 40 MG/0.4 ML SYRINGE SC SCH (09:36)
[2021-08-24 15:03] LABS: Basophils # (auto) 0 10 ^3/uL (0-0.2); Basophils % (auto) 0.7 % (0.0-2.0); Eosinophils # (auto) 0.2 10 ^3/uL (0-0.8); Hemoglobin 10.3 g/dL (13.5-17.5); Lymphocytes # (auto) 0.9 10 ^3/uL (0.4-5.4); White Blood Cell 6.3 10^3/uL (4.4-10.8)
[2021-08-24 15:05] LABS: Eosinophils % (auto) 2.6 % (0.0-7.0); Hematocrit 30.4 % (41.0-53.0); Lymphocytes % (auto) 14.1 % (10.0-50.0); Mean Corpuscular Hemoglobin 27.5 pg (28.0-32.0); Mean Corpuscular Hgb Conc. 33.8 g/dL (32.0-36.0); Mean Corpuscular Volume 81.3 fL (80.0-100.0); Monocytes # (auto) 0.8 10 ^3/uL (0-1.3); Neutrophils # (auto) 4.5 10 ^3/uL (1.6-8.6); Neutrophils % (auto) 70.6 % (37.0-80.0); Red Blood Cells 3.74 10^6/uL (4.5-5.90); Red Cell Distribution Width 17.7 % (11.8-14.3)
[2021-08-24 15:25] LABS: BUN/Creatinine Ratio 8.5; Calcium 7.4 mg/dL (8.5-10.1); Potassium 3.1 mmol/L (3.5-5.1)
[2021-08-24] MEDS: HYDROcodone-ACET 5/325MG TAB PO PRN (23:12)
[2021-08-25] VITALS (8 sets, daily range): BP systolic 94–116; BP diastolic 46–73
[2021-08-25] MEDS: HYDROmorphone HCL 2 MG TAB PO PRN ×5 (01:03→20:08)
[2021-08-25] MEDS: FAMOTIDINE (10MG/ML) 2ML VL IV SCH ×2 (03:00→15:20)
[2021-08-25] MEDS: HYDROcodone-ACET 5/325MG TAB PO PRN ×2 (03:35→12:17)
[2021-08-25] MEDS: ONDANSETRON HCL 4 MG/2 ML VIAL IV PRN ×2 (03:35→09:46)
[2021-08-25] MEDS: ERTAPENEM SOD INJ 1 GM in SODIUM CHL 0.9% 50 ML IV SCH (09:45)
[2021-08-25] MEDS: LACTULOSE 20Gm/30ML SOLN PO SCH ×2 (09:46→21:15)
[2021-08-25] MEDS: ENOXAPARIN SOD 40 MG/0.4 ML SYRINGE SC SCH (09:46)
[2021-08-25] MEDS: LORazepam 2MG/ML-1ML VIAL IV PRN ×2 (12:16→21:15)
[2021-08-25] MEDS: POTASSIUM CHL 20MEQ/50ML 50 ML IV SCH ×2 (18:03→18:45)
[2021-08-26] MEDS: FAMOTIDINE (10MG/ML) 2ML VL IV SCH ×2 (02:08→16:45)
[2021-08-26] MEDS: HYDROmorphone HCL 2 MG TAB PO PRN ×3 (02:08→09:39)
[2021-08-26] MEDS: ONDANSETRON HCL 4 MG/2 ML VIAL IV PRN (04:56)
[2021-08-26 05:00] VITALS: BP 94/55
[2021-08-26] MEDS: LORazepam 2MG/ML-1ML VIAL IV PRN (06:44)
[2021-08-26 09:00] VITALS: BP 95/51
[2021-08-26] MEDS: LACTULOSE 20Gm/30ML SOLN PO SCH ×2 (09:39→21:40)
[2021-08-26] MEDS: ENOXAPARIN SOD 40 MG/0.4 ML SYRINGE SC SCH (09:39)
[2021-08-26 13:00] VITALS: BP 97/60
[2021-08-26] MEDS: HYDROmorphone HCL 2 MG/ML VL IV PRN ×2 (14:43→21:40)
[2021-08-26 17:00] VITALS: BP 101/66
[2021-08-26] MEDS: Glucerna Carbsteady SHAKE Vanilla 8oz PO SCH (17:42)
[2021-08-26 20:00] VITALS: BP 104/69
[2021-08-26 22:00] VITALS: BP 104/69
[2021-08-27] MEDS: HYDROmorphone HCL 2 MG/ML VL IV PRN ×5 (03:04→23:42)
[2021-08-27] MEDS: FAMOTIDINE (10MG/ML) 2ML VL IV SCH ×2 (03:05→15:00)
[2021-08-27] MEDS: Glucerna Carbsteady SHAKE Vanilla 8oz PO SCH ×2 (08:00→18:00)
[2021-08-27 09:00] VITALS: BP 91/55
[2021-08-27] MEDS: ENOXAPARIN SOD 40 MG/0.4 ML SYRINGE SC SCH (10:00)
[2021-08-27] MEDS: LACTULOSE 20Gm/30ML SOLN PO SCH ×2 (10:00→22:02)
[2021-08-27 13:00] VITALS: BP 88/56
[2021-08-27 17:02] VITALS: BP 97/53
[2021-08-27] MEDS: ONDANSETRON HCL 4 MG/2 ML VIAL IV PRN ×2 (18:50→23:38)
[2021-08-27 22:00] VITALS: BP 93/63
[2021-08-28 00:10] VITALS: BP 111/59
[2021-08-28] MEDS: HYDROmorphone HCL 2 MG/ML VL IV PRN ×4 (00:21→15:23)
[2021-08-28] MEDS: FAMOTIDINE (10MG/ML) 2ML VL IV SCH ×2 (02:42→15:00)
[2021-08-28 05:00] VITALS: BP 101/61
[2021-08-28] MEDS: ONDANSETRON HCL 4 MG/2 ML VIAL IV PRN (05:23)
[2021-08-28 08:00] VITALS: BP 108/63
[2021-08-28] MEDS: Glucerna Carbsteady SHAKE Vanilla 8oz PO SCH (08:00)
[2021-08-28 08:30] VITALS: BP 100/54
[2021-08-28 08:33] LABS: Eosinophils # (auto) 0.3 10 ^3/uL (0-0.8); Monocytes # (auto) 0.8 10 ^3/uL (0-1.3); Red Cell Distribution Width 18.6 % (11.8-14.3)
[2021-08-28 08:35] LABS: Basophils # (auto) 0.1 10 ^3/uL (0-0.2); Basophils % (auto) 0.5 % (0.0-2.0); Hemoglobin 11.6 g/dL (13.5-17.5); Lymphocytes # (auto) 1.2 10 ^3/uL (0.4-5.4); Lymphocytes % (auto) 10.8 % (10.0-50.0); Mean Corpuscular Hgb Conc. 32.1 g/dL (32.0-36.0); Mean Corpuscular Volume 84.1 fL (80.0-100.0); Monocytes % (auto) 7.6 % (0.0-12.0); Neutrophils # (auto) 8.5 10 ^3/uL (1.6-8.6); Neutrophils % (auto) 78.1 % (37.0-80.0); Nucleated Red Blood Cells % 0.1 %; Red Blood Cells 4.28 10^6/uL (4.5-5.90); White Blood Cell 10.8 10^3/uL (4.4-10.8)
[2021-08-28 08:47] LABS: BUN/Creatinine Ratio 8.7; Calcium 8.2 mg/dL (8.5-10.1); Potassium 4.8 mmol/L (3.5-5.1)
[2021-08-28] MEDS: ENOXAPARIN SOD 40 MG/0.4 ML SYRINGE SC SCH (10:00)
[2021-08-28] MEDS: LACTULOSE 20Gm/30ML SOLN PO SCH (10:00)
[2021-08-28 10:03] LABS: INR 0.99 (0.9-1.15); Partial Thromboplastin Time 25.4 sec (23.6-33.0)
[2021-08-28] MEDS ORDERED: LIDOCAINE 2%HCL (LOCAL ANESTH.) INJ 20ML MDV ONE (10:21)
[2021-08-28] MEDS ORDERED: IODIXANOL 320MG/ML 100ML BTL IV ONE (10:21)
[2021-08-28] MEDS ORDERED: MIDAZOLAM HCL 2MG/2ML 2ml VIAL (1mg/ml) ONE (10:34)
[2021-08-28] MEDS ORDERED: fentaNYL CITRATE 100 MCG/2 ML VL ONE (10:34)
[2021-08-28] MEDS ORDERED: cefTRIAXone 1GM/50ML D5W 50 ML IV ONE (12:02)
[2021-08-28] MEDS: HYDROcodone-ACET 5/325MG TAB PO PRN (12:32)
[2021-08-28 15:54] VITALS: BP 123/67
[2021-08-28 16:33] VITALS: BP 100/59
== END 2021-08-28 18:01 | disposition home or self-care (01) | DRG 720 ==
LOC: ER 05:18 → EDBD 05:18 → TELE 13:55 → TELE-WESTW 17:32
PROVIDERS: ADMIT Hospitalist; ATTEND Internal Medicine
PROC: 30233N1 Transfusion of Nonautologous Red Blood Cells into Peripheral Vein, Percutaneous Approach (ICD-10-PCS; principal; 2021-08-20)
PROC: 05HF33Z Insertion of Infusion Device into Left Cephalic Vein, Percutaneous Approach (ICD-10-PCS; 2021-08-25)
PROC: B54NZZA Ultrasonography of Left Upper Extremity Veins, Guidance (ICD-10-PCS; 2021-08-25)
PROC: 0T9130Z Drainage of Left Kidney with Drainage Device, Percutaneous Approach (ICD-10-PCS; 2021-08-28)
PROC: BT42ZZZ Ultrasonography of Left Kidney (ICD-10-PCS; 2021-08-28)
PROC: BT121ZZ Fluoroscopy of Left Kidney using Low Osmolar Contrast (ICD-10-PCS; 2021-08-28)
DX: A41.51 Sepsis due to Escherichia coli [E. coli] (principal); E43 Unspecified severe protein-calorie malnutrition; D62 Acute posthemorrhagic anemia; I95.9 Hypotension, unspecified; K94.03 Colostomy malfunction; L02.211 Cutaneous abscess of abdominal wall; N13.6 Pyonephrosis; E86.0 Dehydration; Z20.822 Contact with and (suspected) exposure to COVID-19; F12.90 Cannabis use, unspecified, uncomplicated; F15.90 Other stimulant use, unspecified, uncomplicated; F17.200 Nicotine dependence, unspecified, uncomplicated; G89.29 Other chronic pain; J44.9 Chronic obstructive pulmonary disease, unspecified; K59.00 Constipation, unspecified; F19.10 Other psychoactive substance abuse, uncomplicated; E87.6 Hypokalemia; M43.16 Spondylolisthesis, lumbar region; Z85.048 Personal history of other malignant neoplasm of rectum, rectosigmoid junction, and anus; Z68.21 Body mass index [BMI] 21.0-21.9, adult; Z85.038 Personal history of other malignant neoplasm of large intestine
CPT/HCPCS: 36415; 71275; 74176; 76705; 76942; 80048; 80053; 80061; 80307; 81001; 82306; 83036; 83540; 83550; 83605; 83690; 83735; 83880; 84100; 84443; 84484; 84550; 85007; 85025; 85027; 85379; 85610; 85730; 86850; 86900; 86901; 86920; 87040; 87086; 87088; 87186; 87426; 93005; 96361; 96365; 96375; 96376; 99152; C1729; G0378; J0696; J1335; J1956; J2250; J2405; J2543; J3490; Q9967